=== PATIENT | female | born 1975 | race African-American/Black ===

== ENCOUNTER 2017-08-24 23:26 | Emergency (ER) | payer OTHER, SELFPAY ==
[2017-08-25 00:14] LABS: #Basophils 0.1 thou/uL (0.0-0.2); #Eosinphils 0.1 thou/uL (0.0-0.7); #Lymphocytes 3.2 thou/uL (1.20-3.40); #Monocytes 0.7 thou/uL (0.11-0.59); #Neutrophils 4.8 thou/uL (1.40-6.50); %Basophils 1.2 % (0.0-1.0); %Eosinophils 0.8 % (0.0-10.0); %Monocytes 7.4 % (0.0-10.0); %Neutrophils 54.6 % (42.0-75.0); Hemoglobin 11.3 g/dL (12.0-16.0); Mean Corpuscular HGB CONC 32.4 g/dL (32.0-36.0); Mean Corpuscular Hemoglobin 24.9 pg (27.0-31.0); Mean Corpuscular Volume 76.8 fl (81.0-99.0); Mean Platelet Volume 7.7 fL (7.4-10.4); Platelet Count 240 thou/uL (130-400); RBC Distribution Width 13.8 % (11.5-14.5); Red Blood Cell (RBC) Count 4.54 mill/uL (4.20-5.40); White Blood Cell (WBC) Count 8.8 thou/uL (4.8-10.8)
[2017-08-25 00:37] LABS: CKMB 0.4 ng/mL (0-6.6); Troponin I Less than 0.010 ng/mL (< 0.028)
[2017-08-25 00:40] LABS: ALT (SGPT) Less than 7 U/L (8-55); AST (SGOT) 14 U/L (5-34); Albumin 4.1 g/dL (3.5-5.0); Alkaline Phosphatase 60 U/L (40-150); Anion Gap 12 mmol/L (10-20); BUN (Urea Nitrogen) 6 mg/dL (7.0-18.7); Calc. Creatinine Clearance 0 mL/min (70-130); Calcium 9.4 mg/dL (7.8-10.44); Carbon Dioxide 24 mmol/L (22-29); Chloride 105 mmol/L (98-107); Estimated GFR-MDRD Greater than 90; Globulin 3.3 g/dL (2.4-3.5); Glucose 97 mg/dL (70-105); Potassium 3.6 mmol/L (3.5-5.1); Protein, Total 7.4 g/dL (6.0-8.3); Sodium 137 mmol/L (136-145)
[2017-08-25 00:47] LABS: Bilirubin, Total 0.7 mg/dL (0.2-1.2)
[2017-08-25 04:22] LABS: Blood, Urine Large (Negative); Glucose, Urine (Dipstick) Negative (Negative); Leukocyte Moderate (Negative); Pregnancy Test - Urine (BHCG) Negative (Negative); Pregu Control Background? CLEAR/WHITE (CLR/WHITE); Pregu Control Bar Appear? YES (CONTROL BAR); Protein, Urine (Dipstick) 100 mg/dL (Neg-Trace); pH, Urine 6.5 (5.0-9.0)
[2017-08-25 04:24] LABS: Bilirubin Unable to Interpret (Negative); Clarity Cloudy (Clear)
[2017-08-25 04:25] LABS: Amphetamine Not Detected (NotDetected); Barbiturates Screen Not Detected (NotDetected); Benzodiazepine Screen Not Detected (NotDetected); Cocaine Metabolite Screen Not Detected (NotDetected); Medtox Control Line Valid? VALID (VALID); Medtox Reader # READER 4; Methadone Not Detected (NotDetected); Methamphetamine Not Detected (NotDetected); Opiate Screen Not Detected (NotDetected); Oxycodone Screen Not Detected (NotDetected); Phencyclidine (PCP) Not Detected (NotDetected); Specific Gravity 1.009 (1.002-1.036); Specific Gravity, Urine 1.009 (1.002-1.036); THC/Cannabinoid Screen Detected (NotDetected); Tricyclic Screen Not Detected (NotDetected)
[2017-08-25 04:27] LABS: Nitrite Unable to Interpret (Negative)
[2017-08-25 04:28] LABS: Bacteria/HPF 3+ HPF (None Seen); RBC/HPF GREATER THAN 50-TNTC HPF (0-3)
--- NOTE | 2017-08-25 09:10 | RAD ---
ONE VIEW CHEST: HISTORY: Syncope. COMPARISON: 03/08/2016 FINDINGS: Normal cardiac silhouette. The lungs and pleural spaces are clear. No pneumothorax or osseous abnor malities. IMPRESSION: No acute cardiopulmonary process. POS: [facility]
--- NOTE | 2017-08-25 09:47 | CT ---
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 Witnesses report eyes rolled to the back of her head and episode only lasted 30 seconds. Pt had nausea with 1 e pisode of vomiting. Pt denies n/v since episode. Pt reports similar episodes in the past with no visi t to primary or any other physician. Pt denies head trauma, fever, chills, or urinary or bowel incont inence. TECHNIQUE: Axial computed tomography images of the head/brain without intravenous contrast. COMPARISON: No relevant prior studies available. FINDINGS: No definite acute skull fracture. Included paranasal sinuses are essentially clear. No acute intracranial hemorrhage or mass effect. Ventricle size is normal for age. No definite acute infarct by CT. MRI could be more sensitive/specific for an acute infarct if clinically indicated. IMPRESSION: No acute intracranial bleed or mass effect. No definite acute infarct by CT, see above. Thank you for allowing us to participate in the care of your patient. NICK PINEDA | Preliminary Radiology Report Dictated and Authenticated by: Kurt Baron MD 08/25/2017 3:57 AM Central Time ([place] & [place]) FINAL REPORT NONCONTRAST HEAD CT: HISTORY: Syncope. COMPARISON: None. FINDINGS: This report is in agreement with the preliminary report by [facility]. No acute intracranial process. POS: [facility]"
== END 2017-08-25 05:21 | disposition home or self-care (01) ==
LOC: ERS 23:26
DX: R55 Syncope and collapse (principal); F12.10 Cannabis abuse, uncomplicated; N39.0 Urinary tract infection, site not specified; F41.9 Anxiety disorder, unspecified; F32.9 Major depressive disorder, single episode, unspecified; F17.210 Nicotine dependence, cigarettes, uncomplicated
CPT/HCPCS: 36415; 70450; 71045; 80053; 80306; 81003; 81015; 81025; 82553; 84146; 84484; 85025; 93005; 99406

== ENCOUNTER 2017-10-23 08:16 | Observation (INO) | payer SELFPAY ==
[2017-10-23 09:06] LABS: #Basophils 0.1 thou/uL (0.0-0.2); #Lymphocytes 2.2 thou/uL (1.20-3.40); #Monocytes 0.6 thou/uL (0.11-0.59); #Neutrophils 3.9 thou/uL (1.40-6.50); %Basophils 1.5 % (0.0-1.0); %Eosinophils 0.6 % (0.0-10.0); %Lymphocytes 32.5 % (21.0-51.0); %Monocytes 8.1 % (0.0-10.0); %Neutrophils 57.2 % (42.0-75.0); Hemoglobin 12.4 g/dL (12.0-16.0); Mean Corpuscular HGB CONC 32.8 g/dL (32.0-36.0); Mean Corpuscular Hemoglobin 24.8 pg (27.0-31.0); Mean Corpuscular Volume 75.6 fL (78.0-98.0); Mean Platelet Volume 7.4 fL (7.4-10.4); Platelet Count 320 thou/uL (130-400); RBC Distribution Width 14.6 % (11.5-14.5); Red Blood Cell (RBC) Count 5.01 mill/uL (4.20-5.40); White Blood Cell (WBC) Count 6.8 thou/uL (4.8-10.8)
[2017-10-23 09:27] LABS: ALT (SGPT) Less than 7 U/L (8-55); AST (SGOT) 12 U/L (5-34); Albumin 4.4 g/dL (3.5-5.0); Alkaline Phosphatase 65 U/L (40-150); Anion Gap 14 mmol/L (10-20); BUN (Urea Nitrogen) 12 mg/dL (7.0-18.7); Bilirubin, Total 0.8 mg/dL (0.2-1.2); CK (CPK) 66 U/L (29-168); Calc. Creatinine Clearance 0 mL/min (70-130); Calcium 9.7 mg/dL (7.8-10.44); Carbon Dioxide 22 mmol/L (22-29); Chloride 107 mmol/L (98-107); Estimated GFR-MDRD Greater than 90; Globulin 3.4 g/dL (2.4-3.5); Glucose 96 mg/dL (70-105); Lipase 22 U/L (8-78); Potassium 3.8 mmol/L (3.5-5.1); Protein, Total 7.8 g/dL (6.0-8.3); Sodium 139 mmol/L (136-145)
[2017-10-23 09:31] LABS: CKMB 0.8 ng/mL (0-6.6); Troponin I Less than 0.010 ng/mL (< 0.028)
--- NOTE | 2017-10-23 09:57 | RAD ---
FRONTAL VIEW CHEST: INDICATIONS: Chest pain. COMPARISON: 08/24/2017 FINDINGS: The lungs are clear. There is no evidence of effusion or pneumothorax. The cardiac silhouette is no rmal in size. IMPRESSION: No focal consolidation. POS: [facility]
[2017-10-23 10:13] LABS: Bilirubin Negative (Negative); Blood, Urine Small (Negative); Clarity CLEAR (Clear); Glucose, Urine (Dipstick) Negative (Negative); Leukocyte Trace (Negative); Nitrite Negative (Negative); Protein, Urine (Dipstick) Negative (Neg-Trace); Urobilinogen 0.2 mg/dL (0.2-1.0)
[2017-10-23 10:20] LABS: Bacteria/HPF None Seen HPF (None Seen); Hyaline Casts/LPF 0-3 HYALINE CAST LPF (0-3 Hyaline); RBC/HPF None Seen HPF (0-3); Squamous Epithelial 0-3 HPF (0-3); WBC/HPF 0-3 HPF (0-3)
[2017-10-23 10:22] LABS: Specific Gravity, Urine 1.004 (1.002-1.036)
[2017-10-23] MEDS ORDERED: Nitroglycerin 2% Ointment 1 INCH/1 GM Packet ONE (10:24)
[2017-10-23 10:29] LABS: Crystals/HPF None Seen HPF (Negative)
[2017-10-23] MEDS ORDERED: Ondansetron ODT 4 MG TAB ONE (11:49)
[2017-10-23] MEDS ORDERED: Acetaminophen 500 MG TAB ONE (11:49)
[2017-10-23 12:53] LABS: Troponin I Less than 0.010 ng/mL (< 0.028)
[2017-10-23] MEDS ORDERED: Ondansetron HCl/PF 4 MG/2 ML Vial IVP PRN (13:14)
[2017-10-23] MEDS ORDERED: Ondansetron ODT 4 MG TAB SL PRN (13:14)
[2017-10-23] MEDS ORDERED: Acetaminophen 325 MG TAB PO PRN (13:14)
[2017-10-23 14:01] VITALS: BMI 22.9
[2017-10-23] MEDS ORDERED: Labetalol HCl 100 MG/20 ML VIAL SLOW IVP PRN (14:06)
[2017-10-23 14:50] LABS: Cardiac Risk 3.4 (Less than 4.5)
[2017-10-23 14:58] LABS: Amphetamine Not Detected (NotDetected); Barbiturates Screen Not Detected (NotDetected); Benzodiazepine Screen Not Detected (NotDetected); Cocaine Metabolite Screen Not Detected (NotDetected); Medtox Control Line Valid? VALID (VALID); Medtox Reader # READER 1; Methadone Not Detected (NotDetected); Methamphetamine Not Detected (NotDetected); Opiate Screen Not Detected (NotDetected); Oxycodone Screen Not Detected (NotDetected); Phencyclidine (PCP) Not Detected (NotDetected); THC/Cannabinoid Screen Detected (NotDetected); Tricyclic Screen Not Detected (NotDetected)
[2017-10-23 14:59] LABS: Troponin I Less than 0.010 ng/mL (< 0.028)
[2017-10-23] MEDS ORDERED: hydrALAZINE 20 MG/ML VIAL SLOW IVP PRN (17:24)
[2017-10-23] MEDS: Nitroglycerin 2% Ointment 1 INCH/1 GM Packet TOP SCH (20:15)
--- NOTE | 2017-10-23 23:58 | HP ---
PRIMARY CARE PHYSICIAN: The patient does not have a primary care physician. CHIEF COMPLAINT: Chest pain. HISTORY OF PRESENT ILLNESS: Ms. Yan is a pleasant 41-year-old female that has a history of hype rtension. She was in her usual state of health until earlier for the last 3 days. She says she has been having a pain in the center of her chest. It is underneath the breast and she says she notices it primarily when she takes in a deep breath or when she lifts her arm or she raises her arm. She al so feels that it gets worse when she is under stress. She says that her job is very stressful and connie mojica sometimes does not get along with some of her coworkers. 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 She denies having any shortness of breath, no nause a, no vomiting. She did say she had some dizziness and lightheadedness, but she attributes that to b e her blood pressure being high as she has not had any blood pressure medicines in several months. S he says she has not had her medications because she could not afford it. She was concerned and came to the emergency room where she was found to have a quite elevated blood pressure in the range in the 190s to 200s systolic and she is being placed in observation due to hypertensive urgency as well as chest pain. She had a D-dimer done in the emergency room which was 0.27 and EKG was sinus bradycardi a without any specific EKG changes. REVIEW OF SYSTEMS: All systems were reviewed and are negative except for that mentioned in history o f present illness. PAST MEDICAL HISTORY: Significant for hypertension. PAST SURGICAL HISTORY: She has had a . ALLERGIES: No known drug allergies. SOCIAL HISTORY: She is a smoker. She smokes a pack a day. She says that she is actually improved f rom 2 packs a day. She says she is not quite interested in quitting. She says that is easier that h ave been done. She is single. She denies any alcohol use. She has 4 children and two grandchildren . FAMILY HISTORY: Significant for hypertension and diabetes. MEDICATIONS: She does not remember the name of her medication for blood pressure. She says it start ed with L, sounds like it may have been lisinopril. She says she only took the one small pill a day and it controlled her blood pressure. PHYSICAL EXAMINATION: GENERAL: She is alert and oriented. She appears to be in no acute distress. VITAL SIGNS: Her blood pressure was 218/117 sitting and standing it was 206/110, heart rate was 53, respiratory rate of 12, temperature is 98.8. GENERAL APPEARANCE: She has developed, but she does appear to be a bit underweight for her height. HEENT: Her pupils are equal, round, and reactive. Extraocular muscles are intact. Her sclerae are anicteric. Throat; no erythema, no exudates. NECK: No adenopathy, no bruits. LUNGS: Clear to auscultation. There is no wheezing, no rales. CARDIOVASCULAR: She has normal S1, S2. There is no S3 or S4. No murmurs, clicks, no rubs. ABDOMEN: Soft, it is nontender and nondistended. Positive for bowel sounds. There is no rebound or guarding. EXTREMITIES: There is no clubbing, cyanosis, no edema. NEUROLOGIC: Exam is grossly nonfocal. LABORATORY DATA: Again D-dimer was 0.27. White blood cell count 6.8, hemoglobin 12.4, hematocrit is 37.8 and platelet count was 320. Sodium 139, potassium 3.8, chloride is 107, CO2 is 22, BUN of 12, creatinine 0.7, glucose was 96. Her LFTs were essentially negative. She has had 3 sets of troponins which are negative. Lipase was 22. IMAGING DATA: On her EKG once again was sinus bradycardia with no specific EKG changes. ASSESSMENT AND PLAN: This is a pleasant 41-year-old female that presents to the emergency room compl aining of chest pain, it is atypical in description. It is worse with inspiration and also with lift ing her arm. Her D-dimer was negative. She gives a history of doing strenuous work on her job. I s uspect that this is likely a musculoskeletal strain. She also has a blood pressure which is very poo rly controlled, likely as a result of medical noncompliance. The patient has been placed in observat ion. She has already been ruled out. Lipid panel has been done. The stress test has also been done and the results are pending. I suspect that her chest pain again is musculoskeletal and likely need s no further workup. Her natriuretic peptide was less than 10, so I doubt that there is any signific ant heart failure. Therefore, the patient likely needs primarily blood pressure management. Due to her uncontrolled hypertension, an echo has been ordered. Otherwise, other than starting her on some antihypertensive medications and following up on her stress and echocardiogram, if these are within a reasonable range, then she likely can be discharged home tomorrow. She has been counseled on the ne ed to stop smoking and on the dangers of this. Also, the need for compliance with medications and fo llow up.
[2017-10-24] MEDS: Nitroglycerin 2% Ointment 1 INCH/1 GM Packet TOP SCH (04:27)
[2017-10-24] MEDS ORDERED: traMADol HCl 50 MG TAB PO PRN (04:55)
[2017-10-24] MEDS ORDERED: ADENOSINE 60 MG/20 ML VIAL ONE (10:05)
[2017-10-24 11:21] VITALS: TEMP 97.9
--- NOTE | 2017-10-24 11:28 | NM ---
MYOCARDIAL PERFUSION SCAN WITH SPECT IMAGING: HISTORY: Chest pain. TECHNIQUE/FINDINGS: Examination is performed using 28.2 mCi 99m-technetium sestamibi on the stress and 28.3 on the restin g images. This shows a fairly normal distribution of radiopharmaceutical without signs of ischemia or scar. WALL MOTION: There is symmetric contractility to the ventricle. LEFT VENTRICULAR EJECTION FRACTION: The calculated left ventricular ejection fraction is 68%. IMPRESSION: Unremarkable myocardial perfusion scan. POS: [facility]
--- NOTE | 2017-10-24 13:05 | PDOC.PN ---
- Subjective Encounter Start Date: 10/24/17 Encounter Start Time: 13:03 Ms. Yan was seen today in follow-up. She does not have any complaints. - Objective MAR Reviewed: Yes Vital Signs & Weight: Vital Signs (12 hours) Temp Pulse Resp BP BP Pulse Ox 10/24/17 11:16 97.9 F 58 L 16 188/90 H 99 10/24/17 09:20 98.4 F 60 16 10/24/17 07:21 98.4 F 60 16 134/82 96 10/24/17 04:32 97.9 F 48 L 16 104/54 L 100 Weight Admit Weight 106 lb Weight 106 lb I&O: 10/23/17 10/24/17 10/25/17 06:59 06:59 06:59 Intake Total 760 Balance 760 Result Diagrams: 10/23/17 08:52 10/23/17 08:52 Phys Exam - Physical Examination HEENT: PERRLA Respiratory: no wheezing, no rales, no rhonchi, clear to auscultation bilateral Cardiovascular: RRR, no significant murmur, no rub Gastrointestinal: soft, non-tender, positive bowel sounds Musculoskeletal: no edema Dx/Plan (1) Hypertensive urgency Code(s): I16.0 - HYPERTENSIVE URGENCY Status: Acute (2) Chest pain Code(s): R07.9 - CHEST PAIN, UNSPECIFIED Status: Acute (3) Tobacco abuse Code(s): Z72.0 - TOBACCO USE Status: Acute - Plan * Chest pain- improved- I suspect due to elevated blood pressure * HTN- better- will discharge her home on Lisinopril/HCT.
[2017-10-24 13:15] VITALS: BP 151/81
[2017-10-24] MEDS ORDERED: Lisinopril/Hydrochlorothiazide 10 mg/12.5 mg Tablet PO SCH (17:24)
--- NOTE | 2017-10-24 22:40 | DIS ---
DATE OF ADMISSION: 10/23/2017 DATE OF DISCHARGE: 10/24/2017 PRIMARY CARE PHYSICIAN: The patient currently does not have a primary care physician. DISCHARGE DISPOSITION: Home. PRIMARY DISCHARGE DIAGNOSES: 1. Hypertensive urgency. 2. Tobacco abuse. 3. Underweight. DISCHARGE MEDICATIONS: Include lisinopril/hydrochlorothiazide 10/12.5 one tablet daily. PROCEDURES DONE DURING ADMISSION: The patient had a nuclear stress test which was negative for any r eversible ischemia. She also had an echocardiogram in which there was no evidence of any regional wa ll motion abnormalities. She had an ejection fraction estimated at 55% to 60%, normal valves. CODE STATUS: FULL CODE. ALLERGIES: No known drug allergies. HOSPITAL COURSE: Ms. Yan is a pleasant 41-year-old female who presented to the emergency room w ith complaints of chest pain. She was found to have a blood pressure was extremely elevated. She coleman s not been on any medications for several months. This is because she was unable to afford them. Kalyani mojica says she recently did get a job and plans to follow up. She was placed in observation and ruled ou t. She underwent a nuclear stress test, which was negative as well as an echocardiogram, which did n ot show any significant changes. She was counseled on the dangers of smoking and she will be dischar ge home today with close outpatient followup.
--- NOTE | 2017-10-27 13:56 | EKG ---
Test Reason : Blood Pressure : / mmHG Vent. Rate : 051 BPM Atrial Rate : 051 BPM P-R Int : 128 ms QRS Dur : 088 ms QT Int : 476 ms P-R-T Axes : 048 059 027 degrees QTc Int : 438 ms Sinus bradycardia Otherwise normal ECG #2 No change Confirmed by MAI CARRILLO D.O. ([id number]), state editor FAUSTO ONEIL ([id number] on 10/27/2017 1:56:05 PM Referred By: Confirmed By:MAI CARRILLO D.O.
--- NOTE | 2017-10-27 13:56 | EKG ---
Test Reason : Blood Pressure : / mmHG Vent. Rate : 056 BPM Atrial Rate : 056 BPM P-R Int : 124 ms QRS Dur : 076 ms QT Int : 434 ms P-R-T Axes : 045 067 022 degrees QTc Int : 418 ms Sinus bradycardia Otherwise normal ECG Confirmed by MAI CARRILLO D.O. ([id number]), editorial specialist FAUSTO ONEIL ([id number]) on 10/27/2017 1:55:49 PM Referred By: Confirmed By:MAI CARRILLO D.O.
== END 2017-10-24 13:40 | disposition home or self-care (01) ==
LOC: ERS 08:16 → 2SW 13:11
PROVIDERS: ADMIT Internal Medicine; ATTEND Internal Medicine
DX: I16.0 Hypertensive urgency (principal); I10 Essential (primary) hypertension; R63.6 Underweight; F17.200 Nicotine dependence, unspecified, uncomplicated; Z79.899 Other long term (current) drug therapy
CPT/HCPCS: 36415; 71045; 78452; 80053; 80061; 80306; 81003; 81015; 82553; 83690; 83880; 84484; 85025; 85379; 93005; 93017; 93306; 94760; 96374; 99406; A9500; G0378; J0153; J0360; Q0162

== ENCOUNTER 2018-02-10 13:36 | Emergency (ER) | payer SELFPAY ==
[2018-02-10] MEDS ORDERED: hydrALAZINE 20 MG/ML VIAL ONE (14:20)
[2018-02-10 14:35] LABS: #Basophils 0.1 thou/uL (0.0-0.2); #Lymphocytes 2.6 thou/uL (1.20-3.40); #Monocytes 0.6 thou/uL (0.11-0.59); #Neutrophils 4.7 thou/uL (1.40-6.50); %Eosinophils 0.5 % (0.0-10.0); %Lymphocytes 32.1 % (21.0-51.0); %Monocytes 7.6 % (0.0-10.0); %Neutrophils 58.8 % (42.0-75.0); Mean Corpuscular HGB CONC 31.4 g/dL (32.0-36.0); Mean Corpuscular Hemoglobin 24.6 pg (27.0-31.0); Mean Corpuscular Volume 78.3 fL (78.0-98.0); Mean Platelet Volume 7.8 fL (7.4-10.4); Platelet Count 332 thou/uL (130-400); RBC Distribution Width 13.5 % (11.5-14.5); Red Blood Cell (RBC) Count 4.87 mill/uL (4.20-5.40)
[2018-02-10 14:56] LABS: ALT (SGPT) Less than 7 U/L (8-55); AST (SGOT) 13 U/L (5-34); Alkaline Phosphatase 58 U/L (40-150); Anion Gap 14 mmol/L (10-20); BUN (Urea Nitrogen) 10 mg/dL (7.0-18.7); Bilirubin, Total 0.6 mg/dL (0.2-1.2); CK (CPK) 67 U/L (29-168); Calc. Creatinine Clearance 0 mL/min (70-130); Calcium 9.8 mg/dL (7.8-10.44); Carbon Dioxide 22 mmol/L (22-29); Chloride 106 mmol/L (98-107); Estimated GFR-MDRD Greater than 90; Globulin 3.4 g/dL (2.4-3.5); Glucose 102 mg/dL (70-105); Lipase 34 U/L (8-78); Potassium 3.9 mmol/L (3.5-5.1); Protein, Total 7.4 g/dL (6.0-8.3); Sodium 138 mmol/L (136-145)
[2018-02-10 14:59] LABS: CKMB 0.6 ng/mL (0-6.6); Troponin I Less than 0.010 ng/mL (< 0.028)
[2018-02-10] MEDS ORDERED: Ondansetron PF 4 MG/2 ML Vial ONE (15:02)
--- NOTE | 2018-02-10 15:14 | RAD ---
CHEST 1 VIEW: Date: 02/10/18 HISTORY: Chest pain. COMPARISON: Radiograph dated 10/23/17. FINDINGS: Lungs are clear. No pneumothorax or effusion. Cardiac silhouette and mediastinal contours are within normal limits. IMPRESSION: No acute intrathoracic abnormality. POS: [facility]
[2018-02-10 17:52] LABS: Troponin I Less than 0.010 ng/mL (< 0.028)
[2018-02-10] MEDS ORDERED: Acetaminophen 500 MG TAB ONE (18:32)
== END 2018-02-10 19:03 | disposition home or self-care (01) ==
LOC: ERS 13:36
DX: R07.9 Chest pain, unspecified (principal); F41.9 Anxiety disorder, unspecified; F32.9 Major depressive disorder, single episode, unspecified; F17.210 Nicotine dependence, cigarettes, uncomplicated; I10 Essential (primary) hypertension; Z79.899 Other long term (current) drug therapy
CPT/HCPCS: 36415; 71045; 80053; 82553; 83690; 84484; 85025; 93005; 96361; 96374; 96375; J0360; J2405